=== PATIENT | male | born 1945 ===

== ENCOUNTER 2023-08-01 08:22 | Outpatient (CLI) | payer OTHER | END 2023-08-01 08:23 | disposition home or self-care (01) | LOC: LAB 08:22 | PROVIDERS: ATTEND Orthopaedic Surgery | DX: E55.9 Vitamin D deficiency, unspecified (principal); M85.9 Disorder of bone density and structure, unspecified; E56.1 Deficiency of vitamin K ==

== ENCOUNTER 2023-08-01 08:53 | Outpatient (CLI) | payer OTHER | END 2023-08-01 09:01 | disposition home or self-care (01) | LOC: RAD 08:53 | PROVIDERS: ATTEND Orthopaedic Surgery | DX: M79.641 Pain in right hand (principal); M79.642 Pain in left hand; M79.644 Pain in right finger(s); M79.645 Pain in left finger(s) ==

== ENCOUNTER 2024-08-17 09:17 | Outpatient (CLI) | payer OTHER | END 2024-08-17 09:23 | disposition home or self-care (01) | LOC: SONOGRAMA 09:17 | PROVIDERS: ATTEND Internal Medicine Cardiovascular Disease | DX: R10.9 Unspecified abdominal pain (principal) ==

== ENCOUNTER 2024-09-21 08:19 | Outpatient (CLI) | payer OTHER | END 2024-09-21 08:20 | disposition home or self-care (01) | LOC: TOM 08:19 | PROVIDERS: ATTEND Internal Medicine Gastroenterology | DX: R10.84 Generalized abdominal pain (principal) | CPT/HCPCS: 74177; Q9965 ==

== ENCOUNTER 2024-09-28 08:19 | Outpatient (CLI) | payer OTHER | END 2024-09-28 08:23 | disposition home or self-care (01) | LOC: MRI 08:19 | PROVIDERS: ATTEND Internal Medicine Gastroenterology | DX: D37.6 Neoplasm of uncertain behavior of liver, gallbladder and bile ducts (principal); N28.1 Cyst of kidney, acquired | CPT/HCPCS: 74183 ==

== ENCOUNTER → 2025-01-17 08:55 | Outpatient (CLI) | payer OTHER ==
[2025-01-17 09:42] LABS: BASO % 0.9 % (0.1-1.2); EOS # 0.18 (0.04-0.54); EOS % 2.6 % (0.7-7.0); LYMPH # 1.91 (1.18-3.74); LYMPH % 27.8 % (19.3-53.1); MEAN PLATELET VOLUME 12.50 fl (9.4-12.4); MONO # 0.73 (0.24-0.82); MONO % 10.6 % (4.7-12.5); NEUT # 3.99 (1.56-6.13); NEUT % 58.0 % (34.0-71.1); RED CELL DISTRIBUTION WIDTH 12.6 % (11.6-14.4)
[2025-01-17 10:38] LABS: ALT/SGPT 37.0 U/L (12-78); AST/SGOT 26.0 U/L (15-37); BILIRUBIN TOTAL 0.77 mg/dL (0.3-1.2); BUN CREA RATIO 17.0 (7.0-25.0); CREATININE SERUM 1.12 mg/dL (0.70-1.30); GFR 62.92; GLOBULINA 3.5 G/DL (2.4-3.5); GLUCOSE FASTING 94.0 mg/dL (65-100); OSMOLALITY SERUM 283.0 MOSM/KG (275-295)
== END | disposition home or self-care (01) ==
LOC: LAB 08:55
DX: C7A.011 Malignant carcinoid tumor of the jejunum (principal)

== ENCOUNTER → 2025-03-19 09:10 | Outpatient (CLI) | payer OTHER ==
[2025-03-19 10:57] LABS: BASO % 0.3 % (0.1-1.2); EOS # 0.10 (0.04-0.54); EOS % 0.8 % (0.7-7.0); LYMPH # 1.47 (1.18-3.74); LYMPH % 12.3 % (19.3-53.1); MEAN PLATELET VOLUME 11.90 fl (9.4-12.4); MONO # 1.44 (0.24-0.82); MONO % 12.0 % (4.7-12.5); NEUT # 8.84 (1.56-6.13); NEUT % 73.8 % (34.0-71.1); RED CELL DISTRIBUTION WIDTH 12.8 % (11.6-14.4)
[2025-03-19 11:53] LABS: ALT/SGPT 89.0 U/L (12-78); AST/SGOT 67.0 U/L (15-37); BILIRUBIN TOTAL 0.97 mg/dL (0.3-1.2); BUN CREA RATIO 18.0 (7.0-25.0); CREATININE SERUM 1.23 mg/dL (0.70-1.30); GFR 56.48; GLOBULINA 4.4 G/DL (2.4-3.5); GLUCOSE FASTING 117.0 mg/dL (65-100); OSMOLALITY SERUM 284.0 MOSM/KG (275-295)
== END | disposition home or self-care (01) ==
LOC: LAB 09:10
DX: C7A.011 Malignant carcinoid tumor of the jejunum (principal)

== ENCOUNTER → 2025-04-15 10:18 | Outpatient (CLI) | payer OTHER ==
[2025-04-15 11:31] LABS: BASO % 0.6 % (0.1-1.2); EOS # 0.14 (0.04-0.54); EOS % 1.7 % (0.7-7.0); LYMPH # 1.59 (1.18-3.74); LYMPH % 19.3 % (19.3-53.1); MEAN PLATELET VOLUME 12.30 fl (9.4-12.4); MONO # 0.88 (0.24-0.82); MONO % 10.7 % (4.7-12.5); NEUT # 5.54 (1.56-6.13); NEUT % 67.5 % (34.0-71.1); RED CELL DISTRIBUTION WIDTH 13.2 % (11.6-14.4)
[2025-04-15 12:15] LABS: ALT/SGPT 31.0 U/L (12-78); AST/SGOT 21.0 U/L (15-37); BILIRUBIN TOTAL 0.59 mg/dL (0.3-1.2); BUN CREA RATIO 23.0 (7.0-25.0); CREATININE SERUM 1.14 mg/dL (0.70-1.30); GFR 61.65; GLOBULINA 4.2 G/DL (2.4-3.5); GLUCOSE FASTING 105.0 mg/dL (65-100); OSMOLALITY SERUM 285.0 MOSM/KG (275-295)
== END | disposition home or self-care (01) ==
LOC: LAB 10:18
DX: C7A.011 Malignant carcinoid tumor of the jejunum (principal)